=== PATIENT | female | born 1975 | race Caucasian/White ===

== ENCOUNTER 2016-12-22 07:46 | Emergency (ER) | payer OTHER ==
[~2016-12-22] VITALS: Ht 165.1 cm; Wt 66.7 kg
[~2016-12-22 07:46] MED LIST: LISINOPRIL20 M1; LISINOPRIL20 MG PO; MOTRIN200 MG PO; MOTRIN600 MG PO; ZESTRIL20 MG PO; ZOLOFT25 MG
[2016-12-22 07:54] VITALS: BP 143/89
--- NOTE | 2016-12-22 07:54 | NUR ---
Pt ambulated to bed 4.
--- NOTE | 2016-12-22 08:00 | NUR ---
41/F presents to the ED for evaluation of right upper back mouth pain x1 week ago. Pt reports having a tooth extracted with a bone graft and states "I don't think it's healing right." Patient c/o 05/11 pain, throbbing, non radiating, constant. Patient states she is taking Clindamycin and states "I'm almost done with it." Patient is AOX4, denies fever or chills. Patient in no distress at this time. VSS.
--- NOTE | 2016-12-22 08:21 | NUR ---
Patient being evaluated by physician at bedside.
[2016-12-22 08:40] VITALS: BP 143/89
--- NOTE | 2016-12-22 08:41 | NUR ---
Patient discharged with v/s stable. Written and verbal after care instructions given and explained. Patient alert, oriented and verbalized understanding of instructions. Ambulatory with steady gait. All questions addressed prior to discharge. ID band removed. Patient advised to follow up with PMD. Rx of CLINDAMICIN AND TRAMADOL given. Patient educated on indication of medication including possible reaction and side effects. Opportunity to ask questions provided and answered.
--- NOTE | 2016-12-22 08:41 | NUR ---
Chart checked and completed. The patient's care was reviewed and supervised by Guillermo Rojas RN.
== END 2016-12-22 08:41 | disposition home or self-care (01) ==
LOC: MED 07:46
DX: K04.7 Periapical abscess without sinus (principal); I10 Essential (primary) hypertension; J45.909 Unspecified asthma, uncomplicated; Z88.6 Allergy status to analgesic agent; Z88.1 Allergy status to other antibiotic agents

== ENCOUNTER 2017-05-20 12:40 | Emergency (ER) | payer SELFPAY ==
[~2017-05-20 12:40] MED LIST changes: +IBUP-2213 PO; -LISINOPRIL20 M1; -LISINOPRIL20 MG PO; -MOTRIN200 MG PO; -MOTRIN600 MG PO; -ZESTRIL20 MG PO; -ZOLOFT25 MG
--- NOTE | 2017-05-20 13:08 | NUR ---
PATIENT LEFT WITHOUT BEING SEEN BY DR. DUGGAN. NO FURTHER CARE PROVIDED FOR PATIENT.
== END 2017-05-20 13:08 | disposition left against medical advice (07) ==
LOC: MED 12:40
DX: Z53.21 Procedure and treatment not carried out due to patient leaving prior to being seen by health care provider (principal)

== ENCOUNTER 2018-03-23 07:47 | Emergency (ER) | payer MEDICAID ==
[~2018-03-23] VITALS: Ht 165.1 cm; Wt 52.6 kg
[2018-03-23 07:49] VITALS: BP 156/100
[2018-03-23 08:10] VITALS: BP 113/47
== END 2018-03-23 08:09 | disposition home or self-care (01) ==
LOC: MED 07:47
DX: R21 Rash and other nonspecific skin eruption (principal); R03.0 Elevated blood-pressure reading, without diagnosis of hypertension; Z79.899 Other long term (current) drug therapy; Z88.1 Allergy status to other antibiotic agents
CPT/HCPCS: 99283

== ENCOUNTER 2018-03-30 08:37 | Emergency (ER) | payer MEDICAID ==
[~2018-03-30] VITALS: Ht 165.1 cm; Wt 53.5 kg
[2018-03-30 09:02] VITALS: BP 147/78
--- NOTE | 2018-03-30 09:10 | NUR ---
PATIENT PRESENTS TO ED WITH C/O PERSISTANT PRURITUS GENERALIZED---RECENT TREATMENT FOR FUNGAL INFECTION TO SCALP WELL SCABIES BY OUR ER AND HER PMD PER PT---- NOTABLE SWELLING TO LEFT ANKLE, PT DENIES INJURY-NO DISCOLORATION AMBULATORY WITH STEADY GAIT--- DENIES N/V/D; SKIN IS PINK/WARM/DRY; AAOX4 WITH EVEN AND STEADY GAIT; LUNGS CLEAR BL; HR EVEN AND REGULAR; PT DENIES ANY FEVER, CP, SOB, OR COUGH AT THIS TIME; PATIENT STATES PAIN OF 0/10 AT THIS TIME; VSS; PATIENT POSITIONED FOR COMFORT; HOB ELEVATED; BEDRAILS UP X2; BED DOWN. ER MD MADE AWARE OF PT STATUS.
[2018-03-30 09:44] VITALS: BP 147/78
--- NOTE | 2018-03-30 09:44 | NUR ---
Patient discharged with v/s stable. Written and verbal after care instructions given and explained. Patient alert, oriented and verbalized understanding of instructions. Ambulatory with steady gait. All questions addressed prior to discharge. ID band removed. Patient advised to follow up with PMD. Rx of PERMETHRIN/ PREDNISONE/ LICEMD given. Patient educated on indication of medication including possible reaction and side effects. Opportunity to ask questions provided and answered.
== END 2018-03-30 09:44 | disposition home or self-care (01) ==
LOC: MED 08:37
DX: B85.0 Pediculosis due to Pediculus humanus capitis (principal); R21 Rash and other nonspecific skin eruption; Z88.1 Allergy status to other antibiotic agents
CPT/HCPCS: 99283